=== PATIENT | male | born 1970 | race Caucasian/White ===

== ENCOUNTER 2021-07-07 12:53 | Emergency (ER) | payer OTHER ==
[2021-07-07 13:13] VITALS: BP 137/72
[2021-07-07] MEDS ORDERED: TETANUS/DIPHTHERIA/PERTUSSIS 0.5 ML SYRINGE IM ONE (13:24)
--- NOTE | 2021-07-07 13:28 | ED Physician Documentation ---
History of Present Illness - Stated complaint Stated Complaint: LT FINGER LAC - Chief complaint Chief Complaint: Laceration - Additonal information Additional information: 50-year-old male presents emergency department for evaluation of a left index finger laceration. 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 He was using a drill and accidentally hit the tip of his finger. It is a superficial laceration base of the wound is seen. This extends only superficially to the subcutaneous/fatty tissue. No involvement of bone or tendon. Uncertain of last tetanus. Patient is right-hand dominant Review of Systems Constitutional: denies: Fever, Chills Cardiac: reports: Reviewed and negative Respiratory: reports: Reviewed and negative GI: reports: Reviewed and negative : reports: Reviewed and negative Skin: reports: Laceration (s) PD PAST MEDICAL HISTORY - Past Medical History Past Medical History: Yes Cardiovascular: Hypertension, High cholesterol Respiratory: None Neuro: None Endocrine/Autoimmune: None GI: Other : None HEENT: None Psych: Depression, Post traumatic stress disorder Musculoskeletal: None Derm: Psoriasis Other Past Medical History: IBS - Past Surgical History Past Surgical History: Yes General: Hiatal hernia repair - Allergies Allergies/Adverse Reactions: Allergies Allergy/AdvReac Type Severity Reaction Status Date / Time No Known Drug Allergies Allergy Verified 07/07/21 13:13 - Social History Does the pt smoke?: No Smoking Status: Never smoker Does the pt drink ETOH?: Yes ETOH Use: Beer Does the pt have substance abuse?: Yes - Immunizations Immunizations are current?: Yes - POLST Patient has POLST: No PD ED PE EXPANDED - Extremities Extremities: Left finger(s) (Superficial laceration distal tip of left index finger with small amount of subcutaneous/fatty tissue seen. Not amenable to primary closure as this represents more of an abrasion/ulceration than a laceration.) Results - Vitals Vitals: Vital Signs - 24 hr 07/07/21 13:07 Temperature 36.3 C L Heart Rate 72 Respiratory 14 Rate Blood Pressure 137/72 H O2 Saturation 99 Oxygen O2 Source Room air PD MEDICAL DECISION MAKING - ED course Complexity details: considered differential, d/w patient ED course: 50-year-old male presents emergency department for evaluation of a superficial laceration/abrasion to the tip of his left index finger sustained when using a drill on his job. Patient is right-hand dominant. Tetanus was updated today in the ER. This laceration/abrasion is superficial and not amenable to primary closure. Patient was given a small amount of Surgicel to achieve hemostasis. Routine wound care and otherwise emergent return precautions discussed. L&I paperwork completed Departure - Departure Disposition: 01 Home, Self Care Clinical Impression: Laceration of left index finger Qualifiers: Encounter type: initial encounter Damage to nail status: without damage Foreign body presence: without foreign body Qualified Code(s): S61.211A - Laceration without foreign body of left index finger without damage to nail, initial encounter Condition: Stable Record reviewed to determine appropriate education?: Yes Comments: Naeem the laceration/abrasion to the tip of your index finger is not amenable to primary closure with suture. We did place a dressing on it called Surgicel which will help clot to form. In general this will need to heal over the next week from the inside out. I do recommend a thin layer of antibiotic ointment over the laceration. The Surgicel will fall away over the next 3 to 5 days. It will turn black before doing so. At any point you have concerns of infection, fevers, redness, milky drainage then please return immediately to the ER for 2nd evaluation.
== END 2021-07-07 14:00 | disposition home or self-care (01) ==
LOC: ED 12:53
DX: S61.211A Laceration without foreign body of left index finger without damage to nail, initial encounter (principal); W29.8XXA Contact with other powered hand tools and household machinery, initial encounter; I10 Essential (primary) hypertension; Z23 Encounter for immunization
CPT/HCPCS: 1040M; 90471; 90715; 99281; 99283

== ENCOUNTER 2021-10-28 14:30 | Emergency (ER) | payer OTHER ==
[2021-10-28 15:25] LABS: BASOPHILS # (AUTO) 0.1 10^3/uL (0.0-0.1); BASOPHILS % (AUTO) 0.7 %; EOSINOPHILS # (AUTO) 0.5 10^3/uL (0.0-0.7); HCT - HEMATOCRIT 40.9 % (42.0-52.0); HGB - HEMOGLOBIN 14.3 g/dL (14.0-18.0); LYMPHOCYTES # (AUTO) 2.3 10^3/uL (1.5-3.5); LYMPHOCYTES % (AUTO) 29.5 %; MEAN CORPUSCULAR HEMOGLOBIN 31.2 pg (27.0-31.0); MEAN CORPUSCULAR VOLUME 89.1 fL (80.0-94.0); MEAN PLATELET VOLUME 9.4 fL (7.4-11.4); MONOCYTES # (AUTO) 0.6 10^3/uL (0.0-1.0); MONOCYTES % (AUTO) 7.9 %; NEUTROPHILS # (AUTO) 4.3 10^3/uL (1.5-6.6); NEUTROPHILS % (AUTO) 55.6 %; PLT - PLATELET COUNT 227 10^3/uL (130-450); RED BLOOD COUNT 4.59 10^6/uL (4.70-6.10); RED CELL DISTRIBUTION WIDTH 12.4 % (12.0-15.0); WHITE BLOOD COUNT 7.7 x10^3/uL (4.8-10.8)
--- NOTE | 2021-10-28 15:34 | ED Physician Documentation ---
PD HPI CHEST PAIN - Stated complaint Stated Complaint: CHEST PAIN - Chief complaint Chief Complaint: Cardiac - History obtained from History obtained from: Patient, Family - Additional information Additional information: 51-year-old gentleman with history of palpitations has been having fluttering heartbeat for the last few weeks. Its on and off, no single trigger. Lasts about 20 minutes at a time. Today for the last 4 hours or so has had some pain near the left clavicle and in the arm and left neck. It is better but not completely gone now. He had similar symptoms 15 years ago which led to an angiogram which was subsequently negative. Denies pedal edema or calf pain. No shortness of breath. Review of Systems Ten Systems: 10 systems reviewed and negative Constitutional: reports: Fatigue. denies: Fever, Chills, Sweats Cardiac: denies: Pedal edema, Calf pain Respiratory: denies: Dyspnea, Cough, Hemoptysis, Wheezing PD PAST MEDICAL HISTORY - Past Medical History Cardiovascular: Hypertension, High cholesterol Respiratory: None Neuro: None Endocrine/Autoimmune: None GI: Other : None HEENT: None Psych: Depression, Post traumatic stress disorder Musculoskeletal: None Derm: Psoriasis - Past Surgical History Past Surgical History: Yes General: Hiatal hernia repair - Allergies Allergies/Adverse Reactions: Allergies Allergy/AdvReac Type Severity Reaction Status Date / Time No Known Drug Allergies Allergy Verified 10/28/21 14:41 - Social History Does the pt smoke?: No Smoking Status: Never smoker Does the pt drink ETOH?: Yes Does the pt have substance abuse?: Yes - Immunizations Immunizations are current?: Yes - POLST Patient has POLST: No PD ED PE NORMAL - Vitals Vital signs reviewed: Yes - General General: Alert and oriented X 3, No acute distress - Neck Neck: Supple, no meningeal sign, No bony TTP - Cardiac Cardiac: RRR, No murmur - Respiratory Respiratory: No respiratory distress, Clear bilaterally - Abdomen Abdomen: Non tender - Back Back: No CVA TTP, No spinal TTP - Derm Derm: Normal color, Warm and dry - Extremities Extremities: No edema, No calf tenderness / cord - Neuro Neuro: Alert and oriented X 3, Normal speech Results - Vitals Vitals: Vital Signs - 24 hr 10/28/21 10/28/21 10/28/21 14:35 16:06 17:10 Temperature 36.3 C L 37.1 C Heart Rate 66 56 L 59 L Respiratory 16 15 14 Rate Blood Pressure 132/77 H 120/90 H 138/42 H O2 Saturation 98 96 98 Oxygen O2 Source Room air - EKG (time done) 1437 Rate: Rate (enter#) (66) Rhythm: NSR Krypton: Normal Intervals: Normal OR QRS: Normal Ischemia: Normal ST segments - Labs Labs: Laboratory Tests 10/28/21 10/28/21 10/28/21 15:20 15:20 15:20 WBC 7.7 RBC 4.59 L Hgb 14.3 Hct 40.9 L MCV 89.1 MCH 31.2 H MCHC 35.0 RDW 12.4 Plt Count 227 MPV 9.4 Neut # (Auto) 4.3 Lymph # (Auto) 2.3 Baldwin # (Auto) 0.6 Eos # (Auto) 0.5 Baso # (Auto) 0.1 Absolute Nucleated RBC 0.00 Nucleated RBC % 0.0 Sodium 139 Potassium 4.2 Chloride 104 Carbon Dioxide 25 Anion Gap 10.0 BUN 13 Creatinine 0.7 Estimated GFR (MDRD) 118 Glucose 97 Calcium 9.5 Magnesium 1.8 Total Bilirubin 0.7 AST 18 ALT 22 Alkaline Phosphatase 32 L Troponin I High Sens Total Protein 7.5 Albumin 4.3 Globulin 3.2 Albumin/Globulin Ratio 1.3 TSH 0.85 Nasal Adenovirus (PCR) Nasal B. parapertussis DNA (PCR) Nasal Coronavir 229E PCR Nasal Coronavir HKU1 PCR Nasal Coronavir NL63 PCR Nasal Coronavir OC43 PCR Nasal Enterovir/Rhinovir PCR Nasal Influenza B PCR Nasal Influenza A PCR Nasal Parainfluen 1 PCR Nasal Parainfluen 2 PCR Nasal Parainfluen 3 PCR Nasal Parainfluen 4 PCR Nasal RSV (PCR) Nasal B.pertussis DNA PCR Nasal C.pneumoniae (PCR) Chris Human Metapneumo PCR Nasal M.pneumoniae (PCR) Nasal SARS-CoV-2 (PCR) 10/28/21 10/28/21 15:21 16:40 WBC RBC Hgb Hct MCV MCH MCHC RDW Plt Count MPV Neut # (Auto) Lymph # (Auto) Baldwin # (Auto) Eos # (Auto) Baso # (Auto) Absolute Nucleated RBC Nucleated RBC % Sodium Potassium Chloride Carbon Dioxide Anion Gap BUN Creatinine Estimated GFR (MDRD) Glucose Calcium Magnesium Total Bilirubin AST ALT Alkaline Phosphatase Troponin I High Sens < 2.3 L Total Protein Albumin Globulin Albumin/Globulin Ratio TSH Nasal Adenovirus (PCR) NOT DETECTED Nasal B. parapertussis DNA (PCR) NOT DETECTED Nasal Coronavir 229E PCR NOT DETECTED Nasal Coronavir HKU1 PCR NOT DETECTED Nasal Coronavir NL63 PCR NOT DETECTED Nasal Coronavir OC43 PCR NOT DETECTED Nasal Enterovir/Rhinovir PCR NOT DETECTED Nasal Influenza B PCR NOT DETECTED Nasal Influenza A PCR NOT DETECTED Nasal Parainfluen 1 PCR NOT DETECTED Nasal Parainfluen 2 PCR NOT DETECTED Nasal Parainfluen 3 PCR NOT DETECTED Nasal Parainfluen 4 PCR NOT DETECTED Nasal RSV (PCR) NOT DETECTED Nasal B.pertussis DNA PCR NOT DETECTED Nasal C.pneumoniae (PCR) NOT DETECTED Chris Human Metapneumo PCR NOT DETECTED Nasal M.pneumoniae (PCR) NOT DETECTED Nasal SARS-CoV-2 (PCR) NOT DETECTED PD MEDICAL DECISION MAKING - ED course ED course: 51-year-old gentleman with occasional fluttering heart rate, today with some left clavicular and arm and neck pain. No primary chest pain. EKG completely nonspecific and lab work-up negative. He did have some occasional PACs on the monitor here in discussed with him that he probably needs to follow-up for outpatient cardiac monitoring. Departure - Departure Disposition: 01 Home, Self Care Clinical Impression: Atypical chest pain, Palpitations Condition: Good Record reviewed to determine appropriate education?: Yes Instructions: ED Chest Pain NonCardiac Comments: Blood work looks fine, we specifically checked troponin which was negative and thyroid function given recent feeling of abnormal heart rhythms which was good. Chest x-ray also looking normal. Given the palpitations you have had recently, talk with your doctor about a referral for CAM patch or Holter monitoring. Return for new or worsening symptoms. Discharge Date/Time: 10/28/21 17:10
[2021-10-28 15:39] LABS: ALBUMIN 4.3 g/dL (3.2-5.5); ALBUMIN/GLOBULIN RATIO 1.3 (1.0-2.2); BILIRUBIN,TOTAL 0.7 mg/dL (0.2-1.0); CALCIUM 9.5 mg/dL (8.5-10.3); CREATININE 0.7 mg/dL (0.6-1.2); MAGNESIUM 1.8 mg/dL (1.7-2.8); POTASSIUM 4.2 mmol/L (3.5-5.0); TOTAL PROTEIN 7.5 g/dL (6.7-8.2)
--- NOTE | 2021-10-28 16:12 | XRAY Report ---
PROCEDURE: Chest 1 View X-Ray INDICATIONS: chest pain TECHNIQUE: One view of the chest was acquired. COMPARISON: None FINDINGS: Surgical changes and devices: None. Lungs and pleura: No pleural effusions or pneumothorax. Lungs are clear. Mediastinum: Mediastinal contours appear normal. Heart size is normal. Bones and chest wall: No suspicious bony lesions. Overlying soft tissues appear unremarkable. IMPRESSION: No evidence of acute pulmonary process. Reviewed by: Alexei Perez MD on 10/28/2021 4:11 PM PDT Approved by: Alexei Perez MD on 10/28/2021 4:11 PM PDT Station ID: [id number]
[2021-10-28 17:12] VITALS: BP 138/42
[2021-10-28 17:56] LABS: B. PARAPERTUSSIS- RESP PCR PAN NOT DETECTED; B. PERTUSSIS- RESP PCR PANEL NOT DETECTED; C. PNEUMONIAE- RESP PCR PANEL NOT DETECTED; CORONAVIRUS 229E-RESP PCR NOT DETECTED; CORONAVIRUS HKU1-RESP PCR NOT DETECTED; CORONAVIRUS NL63-RESP PCR NOT DETECTED; CORONAVIRUS OC43-RESP PCR NOT DETECTED; HUMAN METAPNEUMOVIRUS NOT DETECTED; INFLUENZA A- RESP PCR PANEL NOT DETECTED; INFLUENZA B - RESP PCR PANEL NOT DETECTED; M. PNEUMONIAE- RESP PCR PANEL NOT DETECTED; PARAINFLUENZA VIRUS 1 NOT DETECTED; PARAINFLUENZA VIRUS 2 NOT DETECTED; PARAINFLUENZA VIRUS 3 NOT DETECTED; PARAINFLUENZA VIRUS 4 NOT DETECTED; RHINOVIRUS/ENTEROVIRUS NOT DETECTED; RSV- RESP PCR PANEL NOT DETECTED; SARS-CoV-2 -RESP PCR PANEL NOT DETECTED
== END 2021-10-28 17:10 | disposition home or self-care (01) ==
LOC: ED 14:30
DX: R07.89 Other chest pain (principal); R00.2 Palpitations; I10 Essential (primary) hypertension
CPT/HCPCS: 36415; 80053; 83735; 84443; 84484; 85025; 87633; 93005; 99284

== ENCOUNTER 2023-12-28 12:51 | Emergency (ER) | payer BC, OTHER ==
[2023-12-28 13:12] VITALS: O2SAT 100
--- NOTE | 2023-12-28 13:14 | ED Physician Documentation ---
PD HPI UPPER EXT INJURY - Stated complaint Stated Complaint: R WRIST INJURY - Chief complaint Chief Complaint: Ext Problem - Additonal information Additional information: 53-year-old male with history of hypertension, high cholesterol presents emergency department for right wrist pain. Patient says that he was using his right hand doing a repetitive twisting motion yesterday and started to feel pain with twisting maneuver to the radial aspect of the bend of his wrist. No history of wrist injuries in the past or wrist surgery. He said that he has been taking Tylenol and Advil at home as well as using his 's wrist splint and Voltaren cream that has significantly alleviated pain and symptoms but he is worried that he might have torn a ligament or broken his wrist. PD PAST MEDICAL HISTORY - Past Medical History Cardiovascular: Hypertension, High cholesterol Respiratory: None Neuro: None Endocrine/Autoimmune: None GI: Other : None HEENT: None Psych: Depression, Post traumatic stress disorder Musculoskeletal: None Derm: Psoriasis - Past Surgical History Past Surgical History: Yes General: Hiatal hernia repair - Present Medications Home Medications: Ambulatory Orders Medication Instructions Recorded Confirmed Atorvastatin Calcium 40 mg PO DAILY 12/28/23 12/28/23 Trazodone HCl 150 mg PO HS 12/28/23 12/28/23 buPROPion [Wellbutrin Sr] 150 mg PO DAILY 12/28/23 12/28/23 - Allergies Allergies/Adverse Reactions: Allergies Allergy/AdvReac Type Severity Reaction Status Date / Time No Known Drug Allergies Allergy Verified 12/28/23 12:59 - Social History Does the pt smoke?: No Smoking Status: Never smoker Does the pt drink ETOH?: Yes Does the pt have substance abuse?: Yes - Immunizations Immunizations are current?: Yes - POLST Patient has POLST: No PD ED PE NORMAL - Vitals Vital signs reviewed: Yes PD ED PE EXPANDED - Extremities Extremities: Right wrist (strong radial pulse, full ROM, no snuff box tenderness, no popping or crepitus, tenderness with palpation to the radial aspect at the bend of the wrist. ). No: Deformity, Limited ROM, Swelling, Bruising, Red warm joint Results - Vitals Vitals: Vital Signs - 24 hr 12/28/23 12:56 Temperature 36.4 C L Heart Rate 78 Respiratory 19 Rate Blood Pressure 166/80 H O2 Saturation 100 Oxygen O2 Source Room air PD Medical Decision Making - ED course ED course: 53-year-old male presents emergency department for right wrist tenderness at the radial aspect. There is no ecchymosis no swelling it is not warm to the touch there is no erythema he has full range of motion and mild tenderness at the radial aspect of the bend of the wrist. Patient was possibly worried about a break but given that if this is triggered by a twisting maneuver I informed him that a fracture or other acute bony abnormality is very unlikely. He was also worried about a possible complete ligament tear. Given that he has full range of motion no weakness again I told him this is very unlikely. It is possible that he has a possible sprain/strain or tendinitis from overuse injury. He was given a 30 mg Toradol injection here in the ER and told to use Robinson wrap or his 's wrist brace at that has been helping and to alternate between Tylenol ibuprofen or Tylenol Aleve at home for pain and discomfort. No further interventions are needed all questions answered patient safe for discharge. Departure - Departure Disposition: 01 Home, Self Care Clinical Impression: Strain of right wrist Instructions: Wrist Sprain Comments: Thank you for trusting us with your care it appears that you have strained your right wrist as we discussed there is no imaging that will help for this if Voltaren has been working and that Tylenol and Advil have been working continue with these things. If after 6 weeks of Robinson wrap Tylenol ibuprofen you are still experiencing some discomfort you can follow-up with your primary care provider for further evaluation. You can apply ice 20 minutes at a time 1 hour off but I would avoid heat for the next 4 to 6 weeks just with ice. Forms: PCP List
[2023-12-28] MEDS: KETOROLAC 30 MG/ML VIAL IM STA (13:15)
[2023-12-28 13:49] VITALS: BP 166/78
== END 2023-12-28 13:33 | disposition home or self-care (01) ==
LOC: SUPCPDRO 12:51 → ED 12:51
DX: S66.911A Strain of unspecified muscle, fascia and tendon at wrist and hand level, right hand, initial encounter (principal); X50.1XXA Overexertion from prolonged static or awkward postures, initial encounter; I10 Essential (primary) hypertension; E78.00 Pure hypercholesterolemia, unspecified; Z79.899 Other long term (current) drug therapy
CPT/HCPCS: 96372; 99283